=== PATIENT | male | born 1950 | race Caucasian/White ===

== ENCOUNTER 2018-06-26 21:10 | Inpatient (IN) | payer MEDICARE, BC ==
[2018-06-26] MEDS ORDERED: Acetaminophen 500 MG Tab PO ONE (21:57)
--- NOTE | 2018-06-26 22:08 | EDM.PDOC ---
ED HPI GENERAL MEDICAL PROBLEM - General Chief Complaint: Gastrointestinal Problem Stated Complaint: PNEUMONIA Time Seen by Provider: 06/26/18 21:50 Source of Information: Reports: Patient, Old Records, RN History Limitations: Reports: No Limitations - History of Present Illness INITIAL COMMENTS - FREE TEXT/NARRATIVE: 67 yo male here with a dry cough since yesterday and fever and chills this evening. Cough non-productive. Has a pHx of pulmonary fibrosis and COPD. Did have a flu shot this season. No self tx before arrival. Has also a remote hx of pneumonia. Here with his . Onset: Gradual Onset Date: 06/25/18 Duration: Day(s): (1), Getting Worse Location: Reports: Chest Quality: Reports: Other (no pain) Severity: Moderate Improves with: Reports: None Worsens with: Reports: Other (time) Context: Reports: Other (See HPI) Associated Symptoms: Reports: Cough (dry), Fever/Chills. 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 (see below) (none) back pain Pain Score (Numeric/FACES): 6 - Related Data Allergies Allergy/AdvReac Type Severity Reaction Status Date / Time No Known Allergies Allergy Verified 06/26/18 21:48 Home Meds: Home Meds Omeprazole [Prilosec] 40 mg PO DAILY 06/19/15 [History] Simvastatin [Zocor] 20 mg PO BEDTIME 06/19/15 [History] Aspirin [Ecotrin] 81 mg PO DAILY 06/20/15 [History] [place]-3 Fatty Acids [Fish Oil] 1 tab PO DAILY 06/20/15 [History] Sennosides/Docusate Sodium [Stool Softener] 200 mg PO BID 06/20/15 [History] Past Medical History HEENT History: Reports: Impaired Vision, Other (See Below) Other HEENT History: always has a little ringing in ears for past 2 yrs Cardiovascular History: Reports: High Cholesterol Respiratory History: Reports: Pulmonary Fibrosis Gastrointestinal History: Reports: GERD Genitourinary History: Reports: Prostate Disorder Musculoskeletal History: Reports: Arthritis Oncologic (Cancer) History: Reports: Prostate - Infectious Disease History Infectious Disease History: Reports: Chicken Pox, Measles, Mumps - Past Surgical History GI Surgical History: Reports: Colonoscopy Musculoskeletal Surgical History: Reports: Arthroscopic Knee Social & Family History - Caffeine Use Caffeine Use: Reports: Coffee, Soda ED ROS GENERAL - Review of Systems Review Of Systems: See Below Constitutional: Reports: Fever, Chills, Malaise HEENT: Reports: Throat Pain (mild). Denies: Rhinitis Respiratory: Reports: Cough. Denies: Shortness of Breath, Wheezing, Sputum, Hemoptysis Cardiovascular: Reports: No Symptoms GI/Abdominal: Reports: Nausea (very mild). Denies: Abdominal Pain : Reports: No Symptoms Musculoskeletal: Reports: No Symptoms Skin: Reports: No Symptoms Neurological: Reports: No Symptoms ED EXAM, GENERAL - Physical Exam Exam: See Below Exam Limited By: No Limitations General Appearance: Alert, WD/WN, No Apparent Distress Eye Exam: Bilateral Eye: Conjunctival Injection, Normal Inspection, PERRL Ears: Normal External Exam, Normal Canal, Hearing Grossly Normal, Normal TMs Ear Exam: Bilateral Ear: Auricle Normal, Canal Normal Nose: Normal Inspection, Normal Mucosa, No Blood Throat/Mouth: Normal Inspection, Normal Lips, Normal Oropharynx, Normal Voice, No Airway Compromise Head: Atraumatic, Normocephalic Neck: Normal Inspection Respiratory/Chest: No Respiratory Distress, Lungs Clear, Normal Breath Sounds, No Accessory Muscle Use Cardiovascular: Regular Rate, Rhythm, No Edema, Tachycardia GI/Abdominal: Normal Bowel Sounds, Soft, Non-Tender, No Distention Back Exam: Normal Inspection. No: CVA Tenderness (R), CVA Tenderness (L) Extremities: Normal Inspection, Normal Range of Motion, Non-Tender, No Pedal Edema Neurological: Alert, Oriented, CN II-XII Intact, Normal Cognition, No Motor/ Sensory Deficits Psychiatric: Normal Affect, Normal Mood Skin Exam: Warm, Dry, Intact, Normal Color, No Rash, Other (flushed) Course - Vital Signs Last Recorded V/S: Last Vital Signs Temp 39.1 C H 06/26/18 22:54 Pulse 87 06/26/18 22:54 Resp 18 06/26/18 22:54 BP 124/89 06/26/18 22:54 Pulse Ox 100 06/26/18 22:54 - Orders/Labs/Meds Orders: Active Orders 24 hr Category Date Time Status CULTURE BLOOD [BC] Stat Lab 06/26/18 22:10 Received CULTURE BLOOD [BC] Stat Lab 06/26/18 22:15 Received Lactated Ringers [Ringers, Lactated] 1,000 ml Med 06/26/18 23:17 Active IV BOLUS Medication Orders Lactated Ringer's (Ringers, Lactated) 1,000 mls @ 1,000 mls/hr IV BOLUS ONE Stop: 06/27/18 00:16 Labs: Laboratory Tests 06/26/18 06/26/18 06/26/18 Range/Units 22:01 22:30 22:30 WBC 14.4 H (4.5-11.0) K/uL RBC 5.18 (4.30-5.90) M/uL Hgb 14.8 (12.0-15.0) g/dL Hct 43.8 (40.0-54.0) % MCV 85 (80-98) fL MCH 29 (27-31) pg MCHC 34 (32-36) % Plt Count 245 (150-400) K/uL Sodium 137 L (140-148) mmol/L Potassium 3.9 (3.6-5.2) mmol/L Chloride 101 (100-108) mmol/L Carbon Dioxide 23 (21-32) mmol/L Anion Gap 16.9 H (5.0-14.0) mmol/L BUN 21 H (7-18) mg/dL Creatinine 1.2 (0.8-1.3) mg/dL Est Cr Clr Drug Dosing 60.55 mL/min Estimated GFR (MDRD) > 60 (>60) Glucose 155 H (74-106) mg/dL Lactic Acid 2.2 H (0.4-2.0) mmol/L Calcium 8.7 (8.5-10.1) mg/dL Urine Color Urine Appearance Urine pH (4.5-8.0) Ur Specific [place] (1.008-1.030) Urine Protein (NEGATIVE) mg/dL Urine Glucose (UA) (NEGATIVE) mg/dL Urine Ketones (NEGATIVE) mg/dL Urine Occult Blood (NEGATIVE) Urine Nitrite (NEGAITVE) Urine Bilirubin (NEGATIVE) Urine Urobilinogen (NORMAL) mg/dL Ur Leukocyte Esterase (NEGATIVE) Urine RBC (0-5) Urine WBC (0-5) Ur Epithelial Cells Amorphous Sediment Urine Bacteria Urine Mucus 06/26/18 Range/Units 23:01 WBC (4.5-11.0) K/uL RBC (4.30-5.90) M/uL Hgb (12.0-15.0) g/dL Hct (40.0-54.0) % MCV (80-98) fL MCH (27-31) pg MCHC (32-36) % Plt Count (150-400) K/uL Sodium (140-148) mmol/L Potassium (3.6-5.2) mmol/L Chloride (100-108) mmol/L Carbon Dioxide (21-32) mmol/L Anion Gap (5.0-14.0) mmol/L BUN (7-18) mg/dL Creatinine (0.8-1.3) mg/dL Est Cr Clr Drug Dosing mL/min Estimated GFR (MDRD) (>60) Glucose (74-106) mg/dL Lactic Acid (0.4-2.0) mmol/L Calcium (8.5-10.1) mg/dL Urine Color Yellow Urine Appearance Clear Urine pH 5.0 (4.5-8.0) Ur Specific [place] 1.015 (1.008-1.030) Urine Protein Negative (NEGATIVE) mg/dL Urine Glucose (UA) Normal (NEGATIVE) mg/dL Urine Ketones Negative (NEGATIVE) mg/dL Urine Occult Blood Moderate (NEGATIVE) Urine Nitrite Negative (NEGAITVE) Urine Bilirubin Negative (NEGATIVE) Urine Urobilinogen Normal (NORMAL) mg/dL Ur Leukocyte Esterase Negative (NEGATIVE) Urine RBC 0-5 (0-5) Urine WBC 0-5 (0-5) Ur Epithelial Cells Rare Amorphous Sediment Not seen Urine Bacteria Few Urine Mucus Not seen Meds: Medications Generic Name Dose Route Start Last Admin Trade Name Freq PRN Reason Stop Dose Admin Lactated Ringer's 1,000 mls @ 1,000 mls/hr 06/26/18 23:17 Ringers, Lactated IV 06/27/18 00:16 BOLUS ONE Discontinued Medications Generic Name Dose Route Start Last Admin Trade Name Freq PRN Reason Stop Dose Admin Acetaminophen 1,000 mg 06/26/18 21:57 06/26/18 22:05 Tylenol Extra Strength PO 06/26/18 21:58 1,000 mg ONETIME ONE Administration - Radiology Interpretation Free Text/Narrative:: CXR-bilat pneumonia Departure - Departure Time of Disposition: 00:20 Disposition: Admitted As Inpatient 67 Condition: Fair Clinical Impression: Pneumonia Qualifiers: Pneumonia type: due to unspecified organism Laterality: bilateral Lung location : unspecified part of lung Qualified Code(s): J18.9 - Pneumonia, unspecified organism - Discharge Information *PRESCRIPTION DRUG MONITORING PROGRAM REVIEWED*: No *COPY OF PRESCRIPTION DRUG MONITORING REPORT IN PATIENT AMMY: No Referrals: Lina Flood PA-C [Primary Care Provider] - Forms: ED Department Discharge - My Orders Last 24 Hours: My Active Orders 06/26/18 22:10 CULTURE BLOOD [BC] Stat 06/26/18 22:15 CULTURE BLOOD [BC] Stat 06/26/18 23:17 Lactated Ringers [Ringers, Lactated] 1,000 ml IV BOLUS - Assessment/Plan Last 24 Hours: My Active Orders 06/26/18 22:10 CULTURE BLOOD [BC] Stat 06/26/18 22:15 CULTURE BLOOD [BC] Stat 06/26/18 23:17 Lactated Ringers [Ringers, Lactated] 1,000 ml IV BOLUS
[2018-06-26] MEDS ORDERED: Lactated Ringers 1,000 ML IV ONE (23:17)
--- NOTE | 2018-06-26 23:29 | CRLCR ---
Indication: Fever and cough. Technique: Chest 2 views Comparison: None Findings: Cardiovascular and mediastinum: Normal heart size with aortic tortuosity and atherosclerotic calcification. Lungs and pleural spaces: No pleural effusion or pneumothorax. Suture line overlying the left lung. Mild interstitial prominence with some patchy bilateral airspace opacities. Bones and soft tissues: No significant findings. Impression: Bilateral interstitial and alveolar opacities suggestive of pneumonia. Dictated by Beka Bashir MD @ Jun 26 2018 11:26PM Signed by Dr. Beka Bashir @ Jun 26 2018 11:27PM
[2018-06-26] MEDS ORDERED: cefTRIAXone 1 GM in Sodium Chloride 0.9% 50 ML IV ONE (23:53)
[2018-06-26] MEDS ORDERED: Sodium Chloride 0.9% 500 ML IV ONE (23:54)
[2018-06-26] MEDS ORDERED: Azithromycin 250 MG Tab PO ONE (23:54)
[2018-06-27] MEDS ORDERED: Sodium Chloride 0.9% 1,000 ML IV ONE (00:38)
[2018-06-27] MEDS ORDERED: Ondansetron 4 MG/2 ML SDV IV PRN (01:00)
[2018-06-27] MEDS ORDERED: Ondansetron 4 MG Tab.DIS PO PRN (01:00)
[2018-06-27] MEDS ORDERED: oxyCODONE 5 MG Tab PO PRN (01:00)
[2018-06-27] MEDS ORDERED: Morphine 2 MG/ML Syringe IVPUSH PRN (01:00)
[2018-06-27] MEDS ORDERED: Albuterol 0.083% 2.5 MG/3 ML Neb Soln NEB PRN (01:00)
[2018-06-27] MEDS ORDERED: methylPREDNISolone Sodium Succinate 125 MG/2 ML SDV IVPUSH ONE (01:07)
--- NOTE | 2018-06-27 01:16 | PCM.HP ---
H&P History of Present Illness - General Date of Service: 06/26/18 Admit Problem/Dx: Admission Diagnosis/Problem Admission Diagnosis/Problem Pneumonia Source of Information: Patient, Provider, RN History Limitations: Reports: No Limitations - History of Present Illness Initial Comments - Free Text/Narative: 67 yo male here with a dry cough since yesterday and fever and chills this evening. Cough non-productive. Has a pHx of pulmonary fibrosis and COPD. Did have a flu shot this season. No self tx before arrival. Has also a remote hx of pneumonia. Here with his . l Onset of Symptoms: Reports: Sudden (this evening had sudden of fever 103+, shaking chills.) Duration of Symptoms: Reports: Day(s): (not feeling well, sick for the past two days) Location: Reports: Generalized Quality: Reports: Same as Previous Episode (felt like when he had his last pneumonia. ) Severity: Severe Improves with: Reports: Medication, Rest Worsens with: Reports: Breathing, Movement Context: Reports: Other (pneumonia with history of pulmonary fibrosis and COPD) Associated Symptoms: Reports: Chest Pain, Cough, Fever/Chills, Loss of Appetite , Nausea/Vomiting, Shortness of Breath, Weakness back pain Pain Score (Numeric/FACES): 6 - Related Data Allergies/Adverse Reactions: Allergies Allergy/AdvReac Type Severity Reaction Status Date / Time No Known Allergies Allergy Verified 06/26/18 21:48 Home Medications: Home Meds Omeprazole [Prilosec] 40 mg PO DAILY 06/19/15 [History] Simvastatin [Zocor] 20 mg PO BEDTIME 06/19/15 [History] Aspirin [Ecotrin] 81 mg PO DAILY 06/20/15 [History] [place]-3 Fatty Acids [Fish Oil] 1 tab PO DAILY 06/20/15 [History] Sennosides/Docusate Sodium [Stool Softener] 200 mg PO BID 06/20/15 [History] Past Medical History HEENT History: Reports: Impaired Vision, Other (See Below) Other HEENT History: always has a little ringing in ears for past 2 yrs Cardiovascular History: Reports: High Cholesterol Respiratory History: Reports: Pulmonary Fibrosis Gastrointestinal History: Reports: GERD Genitourinary History: Reports: Prostate Disorder Other Genitourinary History: Prostate CA Musculoskeletal History: Reports: Arthritis Oncologic (Cancer) History: Reports: Prostate - Infectious Disease History Infectious Disease History: Reports: Chicken Pox, Measles, Mumps - Past Surgical History GI Surgical History: Reports: Colonoscopy Musculoskeletal Surgical History: Reports: Arthroscopic Knee Social & Family History - Tobacco Use Smoking Status *Q: Never Smoker Tobacco Use Within Last Twelve Months: No Used Tobacco, but Quit: Yes Month/Year Tobacco Last Used: quit smoking 30 years ago. - Caffeine Use Caffeine Use: Reports: Coffee, Soda - Recreational Drug Use Recreational Drug Use: No - Living Situation & Occupation Living situation: Reports: (lives with Yana samson [place], [place] at [facility]. One son,only child lives nearby. 3 grand children.) H&P Review of Systems - Review of Systems: Review Of Systems: See Below General: Reports: Fever, Chills, Malaise, Weakness, Decreased Appetite HEENT: Reports: Sore Throat Pulmonary: Reports: Shortness of Breath, Wheezing, Pleuritic Chest Pain, Cough Cardiovascular: Reports: No Symptoms, Blood Pressure Problem Genitourinary: Reports: No Symptoms Musculoskeletal: Reports: No Symptoms Skin: Reports: No Symptoms Psychiatric: Reports: No Symptoms Neurological: Reports: No Symptoms Hematologic/Lymphatic: Reports: No Symptoms Immunologic: Reports: No Symptoms Exam - Exam Exam: See Below - Vital Signs Vital Signs: Last Vital Signs Temp 39.1 C H 06/26/18 22:54 Pulse 87 06/26/18 22:54 Resp 18 06/26/18 22:54 BP 124/89 06/26/18 22:54 Pulse Ox 100 06/26/18 22:54 Weight: 96.162 kg - Exam Quality Assessment: Supplemental Oxygen, DVT Prophylaxis General: Alert, Oriented, Cooperative, Mild Distress HEENT: PERRLA, Hearing Intact, Mucosa Moist & [place], Nares Patent, Normal Nasal Septum, Posterior Pharynx Clear, Conjunctiva Clear, EOMI, EACs Clear, TMs Clear Neck: Supple Lungs: Decreased Breath Sounds, Crackles, Rales, Wheezing Cardiovascular: Regular Rate, Regular Rhythm, Normal S1, Normal S2 GI/Abdominal Exam: Normal Bowel Sounds, Soft, Non-Tender, No Organomegaly, No Distention (Male) Exam: Deferred Rectal (Males) Exam: Deferred Back Exam: Normal Inspection, Full Range of Motion Extremities: Normal Inspection, Normal Range of Motion, Non-Tender, No Pedal Edema, Normal Capillary Refill Skin: Warm, Dry, Intact Neurological: Cranial Nerves Intact, Reflexes Equal Bilateral Neuro Extensive - Mental Status: Alert, Oriented x3, Normal Mood/Affect, Normal Cognition Psychiatric: Alert, Normal Affect, Normal Mood - Patient Data Lab Results Last 24 hrs: Laboratory Results - last 24 hr 06/26/18 06/26/18 06/26/18 Range/Units 22:01 22:30 22:30 WBC 14.4 H (4.5-11.0) K/uL RBC 5.18 (4.30-5.90) M/uL Hgb 14.8 (12.0-15.0) g/dL Hct 43.8 (40.0-54.0) % MCV 85 (80-98) fL MCH 29 (27-31) pg MCHC 34 (32-36) % Plt Count 245 (150-400) K/uL Sodium 137 L (140-148) mmol/L Potassium 3.9 (3.6-5.2) mmol/L Chloride 101 (100-108) mmol/L Carbon Dioxide 23 (21-32) mmol/L Anion Gap 16.9 H (5.0-14.0) mmol/L BUN 21 H (7-18) mg/dL Creatinine 1.2 (0.8-1.3) mg/dL Est Cr Clr Drug Dosing 60.55 mL/min Estimated GFR (MDRD) > 60 (>60) Glucose 155 H (74-106) mg/dL Lactic Acid 2.2 H (0.4-2.0) mmol/L Calcium 8.7 (8.5-10.1) mg/dL Urine Color Urine Appearance Urine pH (4.5-8.0) Ur Specific [place] (1.008-1.030) Urine Protein (NEGATIVE) mg/dL Urine Glucose (UA) (NEGATIVE) mg/dL Urine Ketones (NEGATIVE) mg/dL Urine Occult Blood (NEGATIVE) Urine Nitrite (NEGAITVE) Urine Bilirubin (NEGATIVE) Urine Urobilinogen (NORMAL) mg/dL Ur Leukocyte Esterase (NEGATIVE) Urine RBC (0-5) Urine WBC (0-5) Ur Epithelial Cells Amorphous Sediment Urine Bacteria Urine Mucus 06/26/18 Range/Units 23:01 WBC (4.5-11.0) K/uL RBC (4.30-5.90) M/uL Hgb (12.0-15.0) g/dL Hct (40.0-54.0) % MCV (80-98) fL MCH (27-31) pg MCHC (32-36) % Plt Count (150-400) K/uL Sodium (140-148) mmol/L Potassium (3.6-5.2) mmol/L Chloride (100-108) mmol/L Carbon Dioxide (21-32) mmol/L Anion Gap (5.0-14.0) mmol/L BUN (7-18) mg/dL Creatinine (0.8-1.3) mg/dL Est Cr Clr Drug Dosing mL/min Estimated GFR (MDRD) (>60) Glucose (74-106) mg/dL Lactic Acid (0.4-2.0) mmol/L Calcium (8.5-10.1) mg/dL Urine Color Yellow Urine Appearance Clear Urine pH 5.0 (4.5-8.0) Ur Specific [place] 1.015 (1.008-1.030) Urine Protein Negative (NEGATIVE) mg/dL Urine Glucose (UA) Normal (NEGATIVE) mg/dL Urine Ketones Negative (NEGATIVE) mg/dL Urine Occult Blood Moderate (NEGATIVE) Urine Nitrite Negative (NEGAITVE) Urine Bilirubin Negative (NEGATIVE) Urine Urobilinogen Normal (NORMAL) mg/dL Ur Leukocyte Esterase Negative (NEGATIVE) Urine RBC 0-5 (0-5) Urine WBC 0-5 (0-5) Ur Epithelial Cells Rare Amorphous Sediment Not seen Urine Bacteria Few Urine Mucus Not seen Result Diagrams: 06/26/18 22:01 06/26/18 22:30 Marck Results Last 24 hrs: Microbiology 06/26/18 22:07 Influenza Type A Antigen Screen - Final Nasal, Unspecified NEGATIVE INFLUENZA A VIRUS AG Influenza Type B Antigen Screen - Final NEGATIVE INFLUENZA B VIRUS AG - Problem List (1) Pneumonia SNOMED Code(s): 759528500 ICD Code: J18.9 - PNEUMONIA, UNSPECIFIED ORGANISM Status: Acute Priority : High Current Visit: Yes Qualifiers: Pneumonia type: due to unspecified organism Laterality: bilateral Lung location: unspecified part of lung Qualified Code(s): J18.9 - Pneumonia, unspecified organism (2) Pulmonary fibrosis, unspecified SNOMED Code(s): 42883122 ICD Code: J84.10 - PULMONARY FIBROSIS, UNSPECIFIED Status: Acute Current Visit: Yes Problem List Initiated/Reviewed/Updated: Yes Orders Last 24hrs: Active Orders 24 hr Category Date Time Status Patient Status Manage Transfer [TRANSFER] Routine ADT 06/27/18 00:58 Active Intake and Output [RC] QSHIFT Care 06/27/18 01:02 Active Notify Provider Vital Signs [RC] ASDIRECTED Care 06/27/18 01:03 Active Oxygen Therapy [RC] PRN Care 06/27/18 01:01 Active Pulse Oximetry [RC] PRN Care 06/27/18 01:02 Active RT Aerosol Therapy [RC] ASDIRECTED Care 06/27/18 01:06 Active Up With Assistance [RC] ASDIRECTED Care 06/27/18 01:00 Active VTE/DVT Education [RC] Per Unit Routine Care 06/27/18 01:01 Active Vital Signs [RC] Q4H Care 06/27/18 01:01 Active Regular Diet [DIET] Diet 06/27/18 Breakfast Active CBC WITH AUTO DIFF [HEME] AM Lab 06/27/18 05:11 Ordered COMPREHENSIVE METABOLIC PN,CMP [CHEM] AM Lab 06/27/18 05:11 Ordered CULTURE BLOOD [BC] Stat Lab 06/26/18 22:10 Received CULTURE BLOOD [BC] Stat Lab 06/26/18 22:15 Received TROPONIN I [CHEM] AM Lab 06/27/18 05:11 Ordered Acetaminophen [Tylenol] Med 06/27/18 01:00 Ordered 650 mg PO Q4H PRN Albuterol [Proventil Neb Soln] Med 06/27/18 01:00 Ordered 2.5 mg NEB Q4H PRN Albuterol/Ipratropium [DuoNeb 3.0-0.5 MG/3 ML] Med 06/27/18 06:00 Ordered 3 ml NEB QID Azithromycin [Zithromax] 500 mg Med 06/27/18 21:00 Ordered Sodium Chloride 0.9% [Normal Saline] 250 ml IV Q24H Codeine/guaiFENesin [Robitussin AC] Med 06/27/18 01:07 Ordered 10 ml PO Q4H PRN Docusate Sodium [Colace] Med 06/27/18 01:00 Ordered 100 mg PO BID PRN Enoxaparin [Lovenox] Med 06/27/18 09:00 Ordered 40 mg SUBCUT DAILY Melatonin Med 06/27/18 21:00 Ordered 6 mg PO BEDTIME Morphine Med 06/27/18 01:00 Ordered 2 mg IVPUSH Q2H PRN Ondansetron [Zofran ODT] Med 06/27/18 01:00 Ordered 4 mg PO Q6H PRN Ondansetron [Zofran] Med 06/27/18 01:00 Ordered 4 mg IV Q4H PRN Pantoprazole [ProTONIX IV] Med 06/27/18 09:00 Ordered 40 mg IVPUSH DAILY Sodium Chloride 0.9% [Normal Saline] 1,000 ml Med 06/27/18 00:38 Active IV .BOLUS Sodium Chloride 0.9% [Normal Saline] 1,000 ml Med 06/27/18 01:00 Ordered IV ASDIRECTED cefTRIAXone [Rocephin] Med 06/27/18 23:00 Ordered 1 gm IM Q24H methylPREDNISolone Sod Succ [Solu-MEDROL] Med 06/27/18 01:07 Once 125 mg IVPUSH ONETIME ONE methylPREDNISolone Sod Succ [Solu-MEDROL] Med 06/27/18 08:10 Ordered 40 mg IVPUSH Q6H oxyCODONE Med 06/27/18 01:00 Ordered 5 mg PO Q4H PRN Resuscitation Status Routine Resus Stat 06/27/18 01:00 Ordered Medication Orders Acetaminophen (Tylenol) 650 mg PO Q4H PRN PRN Reason: Pain (Mild 1-3)/fever Albuterol (Proventil Neb Soln) 2.5 mg NEB Q4H PRN PRN Reason: Shortness Of Breath/wheezing Albuterol/Ipratropium (Duoneb 3.0-0.5 Mg/3 Ml) 3 ml NEB QID [facility]ER[place] Ceftriaxone Sodium (Rocephin) 1 gm IM Q24H [facility] Docusate Sodium (Colace) 100 mg PO BID PRN PRN Reason: Constipation Enoxaparin Sodium (Lovenox) 40 mg SUBCUT DAILY BERNA[place] Guaifenesin/Codeine Phosphate (Robitussin Ac) 10 ml PO Q4H PRN PRN Reason: Cough Sodium Chloride (Normal Saline) 1,000 mls @ 1,000 mls/hr IV .BOLUS ONE Stop: 06/27/18 01:37 Last Admin: 06/27/18 00:43 Dose: 1,000 mls/hr Azithromycin 500 mg/ Sodium (Chloride) 250 mls @ 250 mls/hr IV Q24H BERNA[place] Stop: 06/30/18 21:59 Sodium Chloride (Normal Saline) 1,000 mls @ 125 mls/hr IV ASDIRECTED [facility] Melatonin (Melatonin) 6 mg PO BEDTIME [facility] Methylprednisolone Sodium Succinate (Solu-Medrol) 125 mg IVPUSH ONETIME ONE Stop: 06/27/18 01:08 Methylprednisolone Sodium Succinate (Solu-Medrol) 40 mg IVPUSH Q6H [facility] Morphine Sulfate (Morphine) 2 mg IVPUSH Q2H PRN PRN Reason: Pain (severe 7-10) Ondansetron HCl (Zofran Odt) 4 mg PO Q6H PRN PRN Reason: Nausea able to take PO Ondansetron HCl (Zofran) 4 mg IV Q4H PRN PRN Reason: Nausea/Vomiting Oxycodone HCl (Oxycodone) 5 mg PO Q4H PRN PRN Reason: Pain (moderate 4-6) Pantoprazole Sodium (Protonix Iv) 40 mg IVPUSH DAILY [facility] Assessment/Plan Comment:: ASSESSMENT AND PLAN: This is a 67 year old male present to ER with sudden onset this evening of fever 103, chills and shortness of breath, but has been sick for past two days. Has pulmonary fibrosis. In emergency room he was noted to be short of breath, vital signs 39.6-103-28B/ P 182/76, oxygen saturation at 90% on room air, he was started on oxygen and given nebulizer, oxygen saturations improved to 100%. Labs: CBC WBC 14.4, hgb 14.8, hct 43.8, plt 245, chemistries Na+137, K+ 3.9, cl 101, anion gap 16.9, bun 21, cr 1.2, gfr>60, , ua with micro negative , lactic acid 2.2, ca++ 8.7, influenza A&B negative, blood cultures x2 pending. chest x-ray radiology report bilateral infiltrates consistent with pneumonia. Medications : duo neb, IV fluids normal saline at 1000ML's per hour x 1 bag then at 125ml/hr. PNEUMONIA, bilateral -Admit to [address] [place] [address] for further monitoring -IV Fluids for rehydration NS at 125 mL per hour -IV Antibiotic: Rocephin 1 g IV every 24 hours -IV antibiotic: Zithromax 500 mg IV every 24 hours -IV Solu-Medrol 125 mg given in ER, order 40 mg IV every 6 hrs -albuterol nebulizer every 4 hours as needed for wheezing and cough -Duo nebu ; schedule nebulize every 6 hours -oxygen per nasal cannula to keep oxygen sats greater than 92% -Advise to notify nurses of any chest pain or other symptoms -blood cultures x2 pending Hx of FIBROSIS -monitor Maintenance issues -Orders home meds: hold -Nutrition: regular diet -Ledezma catheter not indicated at this time -DVT: Lovenox 40 mg subcut -PPI: IV Protonix 40mg daily -consult to Spiritual CODE STATUS: FULL CODE Admission status: Admit to [address] [place] [address] Admission justification. This patient will be admitted for inpatient services and is medically appropriate meeting medical necessity for inpatient admission as outlined in my documentation. I reasonably expect the patient will require inpatient services that span. Time over 2 midnights. I reasonably expect this patient to be discharged or transferred within 96 hours after admission to the [facility]. Disposition: home Primary care provider: Dr. Lina Flood Hospitalist: Dr. Overton
[2018-06-27] MEDS: Sodium Chloride 0.9% 1,000 ML IV SCH ×2 (02:25→10:02)
[2018-06-27] MEDS: Albuterol/Ipratropium 3.0-0.5 MG/3 ML Neb Soln NEB SCH ×4 (07:33→21:00)
[2018-06-27] MEDS: Enoxaparin 40 MG/0.4 ML Syringe SUBCUT SCH (08:59)
[2018-06-27] MEDS: methylPREDNISolone Sodium Succinate 40 MG/1 ML SDV IVPUSH SCH ×3 (08:59→20:54)
[2018-06-27] MEDS: Pantoprazole 40 MG Tab.CR PO SCH (08:59)
[2018-06-27] MEDS ORDERED: Pantoprazole 40 MG Vial IVPUSH SCH (09:00)
[2018-06-27] MEDS: Losartan 50 MG Tab PO SCH (11:06)
[2018-06-27] MEDS: Aspirin 81 MG Tab.EC PO SCH (11:06)
--- NOTE | 2018-06-27 14:08 | PCM.PN ---
- General Info Date of Service: 06/27/18 Subjective Update: Mr. Erickson is a 67-year-old gentleman who is admitted through the emergency department last night with fever, cough, shortness of breath and weakness. On evaluation he was found in and and elevated white blood cell count and bilateral pulmonary infiltrates consistent with pneumonia. Blood cultures have been obtained and he was started on IV antibiotic therapy for community- acquired pneumonia with Rocephin and azithromycin. There was no evidence of sepsis on admission or significant hypoxia. - Review of Systems General: Reports: Fever, Weakness, Chills Pulmonary: Reports: Shortness of Breath, Cough. Denies: Pleuritic Chest Pain, Sputum, Hemoptysis, Wheezing Cardiovascular: Reports: Dyspnea on Exertion. Denies: Chest Pain, Palpitations , Orthopnea, PND, Edema, Lightheadedness Gastrointestinal: Reports: No Symptoms - Patient Data Vitals - Most Recent: Last Vital Signs Temp 98.8 F 06/27/18 10:58 Pulse 67 06/27/18 10:58 Resp 18 06/27/18 10:58 BP 127/63 06/27/18 11:06 Pulse Ox 98 06/27/18 10:58 Weight - Most Recent: 212 lb 0.015 oz I&O - Last 24 Hours: Intake & Output 06/26/18 06/27/18 06/27/18 22:59 06:59 14:59 Intake Total 347 480 Output Total 450 800 Balance -103 -320 Lab Results Last 24 Hours: Laboratory Results - last 24 hr 06/26/18 06/26/18 06/26/18 Range/Units 22:01 22:30 22:30 WBC 14.4 H (4.5-11.0) K/uL RBC 5.18 (4.30-5.90) M/uL Hgb 14.8 (12.0-15.0) g/dL Hct 43.8 (40.0-54.0) % MCV 85 (80-98) fL MCH 29 (27-31) pg MCHC 34 (32-36) % Plt Count 245 (150-400) K/uL Neut % (Auto) (36-66) % Lymph % (Auto) (24-44) % [place] % (Auto) (2-6) % Eos % (Auto) (2-4) % Baso % (Auto) (0-1) % Sodium 137 L (140-148) mmol/L Potassium 3.9 (3.6-5.2) mmol/L Chloride 101 (100-108) mmol/L Carbon Dioxide 23 (21-32) mmol/L Anion Gap 16.9 H (5.0-14.0) mmol/L BUN 21 H (7-18) mg/dL Creatinine 1.2 (0.8-1.3) mg/dL Est Cr Clr Drug Dosing 60.55 mL/min Estimated GFR (MDRD) > 60 (>60) Glucose 155 H (74-106) mg/dL Lactic Acid 2.2 H (0.4-2.0) mmol/L Calcium 8.7 (8.5-10.1) mg/dL Total Bilirubin (0.2-1.0) mg/dL AST (15-37) U/L ALT (12-78) U/L Alkaline Phosphatase (46-116) U/L Troponin I (0.000-0.056) ng/mL Total Protein (6.4-8.2) g/dL Albumin (3.4-5.0) g/dL Globulin (2.3-3.5) g/dL Albumin/Globulin Ratio (1.2-2.2) Urine Color Urine Appearance Urine pH (4.5-8.0) Ur Specific [place] (1.008-1.030) Urine Protein (NEGATIVE) mg/dL Urine Glucose (UA) (NEGATIVE) mg/dL Urine Ketones (NEGATIVE) mg/dL Urine Occult Blood (NEGATIVE) Urine Nitrite (NEGAITVE) Urine Bilirubin (NEGATIVE) Urine Urobilinogen (NORMAL) mg/dL Ur Leukocyte Esterase (NEGATIVE) Urine RBC (0-5) Urine WBC (0-5) Ur Epithelial Cells Amorphous Sediment Urine Bacteria Urine Mucus 06/26/18 06/27/18 06/27/18 Range/Units 23:01 05:00 05:00 WBC 20.0 H (4.5-11.0) K/uL RBC 4.63 (4.30-5.90) M/uL Hgb 13.2 (12.0-15.0) g/dL Hct 39.2 L (40.0-54.0) % MCV 85 (80-98) fL MCH 29 (27-31) pg MCHC 34 (32-36) % Plt Count 224 (150-400) K/uL Neut % (Auto) 90 H (36-66) % Lymph % (Auto) 4 L (24-44) % [place] % (Auto) 6 (2-6) % Eos % (Auto) 0 L (2-4) % Baso % (Auto) 0 (0-1) % Sodium 138 L (140-148) mmol/L Potassium 4.2 (3.6-5.2) mmol/L Chloride 104 (100-108) mmol/L Carbon Dioxide 23 (21-32) mmol/L Anion Gap 15.2 H (5.0-14.0) mmol/L BUN 19 H (7-18) mg/dL Creatinine 1.2 (0.8-1.3) mg/dL Est Cr Clr Drug Dosing 60.35 mL/min Estimated GFR (MDRD) > 60 (>60) Glucose 148 H (74-106) mg/dL Lactic Acid (0.4-2.0) mmol/L Calcium 8.4 L (8.5-10.1) mg/dL Total Bilirubin 0.4 (0.2-1.0) mg/dL AST 31 (15-37) U/L ALT 37 (12-78) U/L Alkaline Phosphatase 59 (46-116) U/L Troponin I 0.068 H* (0.000-0.056) ng/mL Total Protein 6.8 (6.4-8.2) g/dL Albumin 3.2 L (3.4-5.0) g/dL Globulin 3.6 H (2.3-3.5) g/dL Albumin/Globulin Ratio 0.9 L (1.2-2.2) Urine Color Yellow Urine Appearance Clear Urine pH 5.0 (4.5-8.0) Ur Specific [place] 1.015 (1.008-1.030) Urine Protein Negative (NEGATIVE) mg/dL Urine Glucose (UA) Normal (NEGATIVE) mg/dL Urine Ketones Negative (NEGATIVE) mg/dL Urine Occult Blood Moderate (NEGATIVE) Urine Nitrite Negative (NEGAITVE) Urine Bilirubin Negative (NEGATIVE) Urine Urobilinogen Normal (NORMAL) mg/dL Ur Leukocyte Esterase Negative (NEGATIVE) Urine RBC 0-5 (0-5) Urine WBC 0-5 (0-5) Ur Epithelial Cells Rare Amorphous Sediment Not seen Urine Bacteria Few Urine Mucus Not seen 06/27/18 Range/Units 10:51 WBC (4.5-11.0) K/uL RBC (4.30-5.90) M/uL Hgb (12.0-15.0) g/dL Hct (40.0-54.0) % MCV (80-98) fL MCH (27-31) pg MCHC (32-36) % Plt Count (150-400) K/uL Neut % (Auto) (36-66) % Lymph % (Auto) (24-44) % [place] % (Auto) (2-6) % Eos % (Auto) (2-4) % Baso % (Auto) (0-1) % Sodium (140-148) mmol/L Potassium (3.6-5.2) mmol/L Chloride (100-108) mmol/L Carbon Dioxide (21-32) mmol/L Anion Gap (5.0-14.0) mmol/L BUN (7-18) mg/dL Creatinine (0.8-1.3) mg/dL Est Cr Clr Drug Dosing mL/min Estimated GFR (MDRD) (>60) Glucose (74-106) mg/dL Lactic Acid (0.4-2.0) mmol/L Calcium (8.5-10.1) mg/dL Total Bilirubin (0.2-1.0) mg/dL AST (15-37) U/L ALT (12-78) U/L Alkaline Phosphatase (46-116) U/L Troponin I 0.028 (0.000-0.056) ng/mL Total Protein (6.4-8.2) g/dL Albumin (3.4-5.0) g/dL Globulin (2.3-3.5) g/dL Albumin/Globulin Ratio (1.2-2.2) Urine Color Urine Appearance Urine pH (4.5-8.0) Ur Specific [place] (1.008-1.030) Urine Protein (NEGATIVE) mg/dL Urine Glucose (UA) (NEGATIVE) mg/dL Urine Ketones (NEGATIVE) mg/dL Urine Occult Blood (NEGATIVE) Urine Nitrite (NEGAITVE) Urine Bilirubin (NEGATIVE) Urine Urobilinogen (NORMAL) mg/dL Ur Leukocyte Esterase (NEGATIVE) Urine RBC (0-5) Urine WBC (0-5) Ur Epithelial Cells Amorphous Sediment Urine Bacteria Urine Mucus Marck Results Last 24 Hours: Microbiology 06/26/18 22:07 Influenza Type A Antigen Screen - Final Nasal, Unspecified NEGATIVE INFLUENZA A VIRUS AG Influenza Type B Antigen Screen - Final NEGATIVE INFLUENZA B VIRUS AG Med Orders - Current: Current Medications Acetaminophen (Tylenol) 650 mg PO Q4H PRN PRN Reason: Pain (Mild 1-3)/fever Albuterol (Proventil Neb Soln) 2.5 mg NEB Q4H PRN PRN Reason: Shortness Of Breath/wheezing Albuterol/Ipratropium (Duoneb 3.0-0.5 Mg/3 Ml) 3 ml NEB QIDRT [facility] Last Admin: 06/27/18 10:45 Dose: 3 ml Aspirin (Halfprin) 81 mg PO DAILY [facility] Last Admin: 06/27/18 11:06 Dose: 81 mg Docusate Sodium (Colace) 100 mg PO BID PRN PRN Reason: Constipation Enoxaparin Sodium (Lovenox) 40 mg SUBCUT DAILY [facility] Last Admin: 06/27/18 08:59 Dose: 40 mg Guaifenesin/Codeine Phosphate (Robitussin Ac) 10 ml PO Q4H PRN PRN Reason: Cough Azithromycin 500 mg/ Sodium (Chloride) 250 mls @ 250 mls/hr IV Q24H [facility] Stop: 06/30/18 21:59 Ceftriaxone Sodium 1 gm/ (Sodium Chloride) 50 mls @ 100 mls/hr IV Q24H [facility] Lactobacillus Rhamnosus (Culturelle) 1 cap PO BID [facility] Losartan Potassium (Cozaar) 50 mg PO DAILY [facility] Last Admin: 06/27/18 11:06 Dose: 50 mg Melatonin (Melatonin) 6 mg PO BEDTIME [facility] Methylprednisolone Sodium Succinate (Solu-Medrol) 40 mg IVPUSH Q6H [facility] Last Admin: 06/27/18 08:59 Dose: 40 mg Morphine Sulfate (Morphine) 2 mg IVPUSH Q2H PRN PRN Reason: Pain (severe 7-10) Ondansetron HCl (Zofran Odt) 4 mg PO Q6H PRN PRN Reason: Nausea able to take PO Ondansetron HCl (Zofran) 4 mg IV Q4H PRN PRN Reason: Nausea/Vomiting Oxycodone HCl (Oxycodone) 5 mg PO Q4H PRN PRN Reason: Pain (moderate 4-6) Pantoprazole Sodium (Protonix) 40 mg PO ACBREAKFAST [facility] Last Admin: 06/27/18 08:59 Dose: 40 mg Simvastatin (Zocor) 20 mg PO BEDTIME [facility] Discontinued Medications Acetaminophen (Tylenol Extra Strength) 1,000 mg PO ONETIME ONE Stop: 06/26/18 21:58 Last Admin: 06/26/18 22:05 Dose: 1,000 mg Azithromycin (Zithromax) 500 mg PO ONETIME ONE Stop: 06/26/18 23:55 Last Admin: 06/27/18 00:29 Dose: 500 mg Ceftriaxone Sodium (Rocephin) 1 gm IM Q24H [facility] Lactated Ringer's (Ringers, Lactated) 1,000 mls @ 1,000 mls/hr IV BOLUS ONE Stop: 06/27/18 00:16 Last Admin: 06/27/18 00:44 Dose: Not Given Ceftriaxone Sodium 1 gm/ (Sodium Chloride) 50 mls @ 100 mls/hr IV ONETIME ONE Stop: 06/27/18 00:22 Last Admin: 06/27/18 00:29 Dose: 100 mls/hr Sodium Chloride (Normal Saline) 500 mls @ 1,000 mls/hr IV .BOLUS ONE Stop: 06/27/18 00:23 Last Admin: 06/27/18 00:43 Dose: Not Given Sodium Chloride (Normal Saline) 1,000 mls @ 1,000 mls/hr IV .BOLUS ONE Stop: 06/27/18 01:37 Last Admin: 06/27/18 00:43 Dose: 1,000 mls/hr Sodium Chloride (Normal Saline) 1,000 mls @ 125 mls/hr IV ASDIRECTED [facility] Last Admin: 06/27/18 10:02 Dose: 125 mls/hr Methylprednisolone Sodium Succinate (Solu-Medrol) 125 mg IVPUSH ONETIME ONE Stop: 06/27/18 01:08 Last Admin: 06/27/18 02:23 Dose: 125 mg Pantoprazole Sodium (Protonix Iv) 40 mg IVPUSH DAILY [facility] - Exam Quality Assessment: DVT Prophylaxis General: Alert, Oriented, Cooperative, Mild Distress Lungs: Normal Respiratory Effort, Rhonchi. No: Crackles, Rales, Wheezing Cardiovascular: Regular Rate, Regular Rhythm, No Murmurs GI/Abdominal Exam: Soft, Non-Tender, No Organomegaly, No Distention Extremities: Non-Tender, No Pedal Edema - Problem List Review Problem List Initiated/Reviewed/Updated: Yes - My Orders Last 24 Hours: My Active Orders 06/27/18 10:30 Aspirin [Halfprin] 81 mg PO DAILY Losartan [Cozaar] 50 mg PO DAILY 06/27/18 13:30 Lactobacillus Rhamnosus GG [Culturelle] 1 cap PO BID Convert IV to Saline Lock [OM.PC] Routine 06/27/18 21:00 Simvastatin [Zocor] 20 mg PO BEDTIME 06/27/18 23:00 cefTRIAXone [Rocephin] 1 gm Sodium Chloride 0.9% [Normal Saline] 50 ml IV Q24H 06/28/18 05:00 BASIC METABOLIC PANEL,BMP [CHEM] Timed CBC WITH AUTO DIFF [HEME] Timed MAGNESIUM [CHEM] Timed - Plan Plan:: ASSESSMENT AND PLAN PNEUMONIA, bilateral -Saline lock IV -IV Antibiotic: Rocephin 1 g IV every 24 hours -IV antibiotic: Zithromax 500 mg IV every 24 hours -IV Solu-Medrol 40 mg IV every 6 hrs -albuterol nebulizer every 4 hours as needed for wheezing and cough -Duo nebu ; schedule nebulize every 6 hours -oxygen as needed -blood cultures x2 pending HISTORY OF PULMONARY FIBROSIS -monitor Maintenance issues -Nutrition: regular diet -Ledezma catheter not indicated at this time -DVT: Lovenox 40 mg subcut -PPI: IV Protonix 40mg daily CODE STATUS: FULL CODE Admission status: Admit to [address] [place] [address]. This patient will be admitted for inpatient services and is medically appropriate meeting medical necessity for inpatient admission as outlined in my documentation. I reasonably expect the patient will require inpatient services that span. Time over 2 midnights. I reasonably expect this patient to be discharged or transferred within 96 hours after admission to the critical access hospital. Disposition: home Primary care provider: Dr. Lina Flood Hospitalist: Dr. Overton
[2018-06-27] MEDS: Acetaminophen 325 MG Tab PO PRN (14:13)
[2018-06-27] MEDS: Lactobacillus Rhamnosus GG (Probiotic) Cap PO SCH ×2 (14:13→20:54)
[2018-06-27] MEDS: Azithromycin 500 MG in Sodium Chloride 0.9% 250 ML IV SCH (20:54)
[2018-06-27] MEDS: Simvastatin 20 MG Tab PO SCH (20:55)
[2018-06-27] MEDS: Codeine/guaiFENesin 100mg-10 MG/5 ML Syrup 10 ML Cup PO PRN (21:00)
[2018-06-27] MEDS ORDERED: Melatonin 3 MG Tab PO SCH (21:00)
[2018-06-27] MEDS: cefTRIAXone 1 GM in Sodium Chloride 0.9% 50 ML IV SCH (22:13)
[2018-06-27] MEDS ORDERED: cefTRIAXone 1 GM Vial IM SCH (23:00)
[2018-06-28] MEDS: methylPREDNISolone Sodium Succinate 40 MG/1 ML SDV IVPUSH SCH ×3 (02:15→13:39)
[2018-06-28] MEDS: Albuterol/Ipratropium 3.0-0.5 MG/3 ML Neb Soln NEB SCH ×4 (07:26→20:18)
[2018-06-28] MEDS: Pantoprazole 40 MG Tab.CR PO SCH (07:57)
[2018-06-28] MEDS: Enoxaparin 40 MG/0.4 ML Syringe SUBCUT SCH (07:59)
[2018-06-28] MEDS: Lactobacillus Rhamnosus GG (Probiotic) Cap PO SCH ×2 (08:00→20:18)
[2018-06-28] MEDS: Aspirin 81 MG Tab.EC PO SCH (08:00)
[2018-06-28] MEDS: Losartan 50 MG Tab PO SCH (08:00)
--- NOTE | 2018-06-28 14:01 | PCM.PN ---
- General Info Date of Service: 06/28/18 Subjective Update: Mr. Erickson has been stable since yesterday, shortness of breath improved and he is been able to be out and walking in the hallways. Cough seems to be better as well, he has remained afebrile and hemodynamically stable. Functional Status: Reports: Tolerating Diet, Ambulating, Urinating - Review of Systems Pulmonary: Reports: Shortness of Breath, Cough, Sputum. Denies: Hemoptysis, Wheezing Cardiovascular: Reports: Dyspnea on Exertion. Denies: Chest Pain, Palpitations , Orthopnea, PND, Edema, Lightheadedness Gastrointestinal: Reports: No Symptoms - Patient Data Vitals - Most Recent: Last Vital Signs Temp 98.2 F 06/28/18 11:00 Pulse 80 06/28/18 11:00 Resp 16 06/28/18 11:00 BP 147/70 H 06/28/18 11:00 Pulse Ox 96 06/28/18 11:00 Weight - Most Recent: 212 lb 0.015 oz I&O - Last 24 Hours: Intake & Output 06/27/18 06/28/18 06/28/18 22:59 06:59 14:59 Intake Total 2019 300 680 Balance 2019 300 680 Lab Results Last 24 Hours: Laboratory Results - last 24 hr 06/28/18 06/28/18 Range/Units 05:17 05:17 WBC 19.7 H (4.5-11.0) K/uL RBC 4.08 L (4.30-5.90) M/uL Hgb 11.8 L (12.0-15.0) g/dL Hct 34.8 L (40.0-54.0) % MCV 85 (80-98) fL MCH 29 (27-31) pg MCHC 34 (32-36) % Plt Count 165 (150-400) K/uL Neut % (Auto) 90 H (36-66) % Lymph % (Auto) 5 L (24-44) % [place] % (Auto) 4 (2-6) % Eos % (Auto) 1 L (2-4) % Baso % (Auto) 0 (0-1) % Sodium 138 L (140-148) mmol/L Potassium 4.6 (3.6-5.2) mmol/L Chloride 106 (100-108) mmol/L Carbon Dioxide 21 (21-32) mmol/L Anion Gap 15.6 H (5.0-14.0) mmol/L BUN 22 H (7-18) mg/dL Creatinine 1.0 (0.8-1.3) mg/dL Est Cr Clr Drug Dosing 72.42 mL/min Estimated GFR (MDRD) > 60 (>60) Glucose 155 H (74-106) mg/dL Calcium 8.0 L (8.5-10.1) mg/dL Magnesium 1.9 (1.8-2.4) mg/dL Marck Results Last 24 Hours: Microbiology 06/26/18 22:10 Aerobic Blood Culture - Preliminary Blood - Arm, Left NO GROWTH AFTER 1 DAY Anaerobic Blood Culture - Preliminary NO GROWTH AFTER 1 DAY 06/26/18 22:15 Aerobic Blood Culture - Preliminary Blood - Arm, Left NO GROWTH AFTER 1 DAY Anaerobic Blood Culture - Preliminary NO GROWTH AFTER 1 DAY Med Orders - Current: Current Medications Acetaminophen (Tylenol) 650 mg PO Q4H PRN PRN Reason: Pain (Mild 1-3)/fever Last Admin: 06/27/18 14:13 Dose: 650 mg Albuterol (Proventil Neb Soln) 2.5 mg NEB Q4H PRN PRN Reason: Shortness Of Breath/wheezing Albuterol/Ipratropium (Duoneb 3.0-0.5 Mg/3 Ml) 3 ml NEB QIDRT [facility] Last Admin: 06/28/18 10:49 Dose: 3 ml Aspirin (Halfprin) 81 mg PO DAILY [facility] Last Admin: 06/28/18 08:00 Dose: 81 mg Docusate Sodium (Colace) 100 mg PO BID PRN PRN Reason: Constipation Enoxaparin Sodium (Lovenox) 40 mg SUBCUT DAILY [facility] Last Admin: 06/28/18 07:59 Dose: 40 mg Guaifenesin/Codeine Phosphate (Robitussin Ac) 10 ml PO Q4H PRN PRN Reason: Cough Last Admin: 06/27/18 21:00 Dose: 10 ml Azithromycin 500 mg/ Sodium (Chloride) 250 mls @ 250 mls/hr IV Q24H [facility] Stop: 06/30/18 21:59 Last Admin: 06/27/18 20:54 Dose: 250 mls/hr Ceftriaxone Sodium 1 gm/ (Sodium Chloride) 50 mls @ 100 mls/hr IV Q24H [facility] Last Admin: 06/27/18 22:13 Dose: 100 mls/hr Lactobacillus Rhamnosus (Culturelle) 1 cap PO BID [facility] Last Admin: 06/28/18 08:00 Dose: 1 cap Losartan Potassium (Cozaar) 50 mg PO DAILY [facility] Last Admin: 06/28/18 08:00 Dose: 50 mg Melatonin (Melatonin) 6 mg PO BEDTIME [facility] Last Admin: 06/27/18 20:54 Dose: 6 mg Morphine Sulfate (Morphine) 2 mg IVPUSH Q2H PRN PRN Reason: Pain (severe 7-10) Ondansetron HCl (Zofran Odt) 4 mg PO Q6H PRN PRN Reason: Nausea able to take PO Ondansetron HCl (Zofran) 4 mg IV Q4H PRN PRN Reason: Nausea/Vomiting Oxycodone HCl (Oxycodone) 5 mg PO Q4H PRN PRN Reason: Pain (moderate 4-6) Pantoprazole Sodium (Protonix) 40 mg PO ACBREAKFAST [facility] Last Admin: 06/28/18 07:57 Dose: 40 mg Simvastatin (Zocor) 20 mg PO BEDTIME [facility] Last Admin: 06/27/18 20:55 Dose: 20 mg Discontinued Medications Acetaminophen (Tylenol Extra Strength) 1,000 mg PO ONETIME ONE Stop: 06/26/18 21:58 Last Admin: 06/26/18 22:05 Dose: 1,000 mg Azithromycin (Zithromax) 500 mg PO ONETIME ONE Stop: 06/26/18 23:55 Last Admin: 06/27/18 00:29 Dose: 500 mg Ceftriaxone Sodium (Rocephin) 1 gm IM Q24H [facility] Lactated Ringer's (Ringers, Lactated) 1,000 mls @ 1,000 mls/hr IV BOLUS ONE Stop: 06/27/18 00:16 Last Admin: 06/27/18 00:44 Dose: Not Given Ceftriaxone Sodium 1 gm/ (Sodium Chloride) 50 mls @ 100 mls/hr IV ONETIME ONE Stop: 06/27/18 00:22 Last Admin: 06/27/18 00:29 Dose: 100 mls/hr Sodium Chloride (Normal Saline) 500 mls @ 1,000 mls/hr IV .BOLUS ONE Stop: 06/27/18 00:23 Last Admin: 06/27/18 00:43 Dose: Not Given Sodium Chloride (Normal Saline) 1,000 mls @ 1,000 mls/hr IV .BOLUS ONE Stop: 06/27/18 01:37 Last Admin: 06/27/18 00:43 Dose: 1,000 mls/hr Sodium Chloride (Normal Saline) 1,000 mls @ 125 mls/hr IV ASDIRECTED [facility] Last Admin: 06/27/18 10:02 Dose: 125 mls/hr Methylprednisolone Sodium Succinate (Solu-Medrol) 125 mg IVPUSH ONETIME ONE Stop: 06/27/18 01:08 Last Admin: 06/27/18 02:23 Dose: 125 mg Methylprednisolone Sodium Succinate (Solu-Medrol) 40 mg IVPUSH Q6H [facility] Last Admin: 06/28/18 13:39 Dose: 40 mg Pantoprazole Sodium (Protonix Iv) 40 mg IVPUSH DAILY [facility] - Exam General: Alert, Oriented, Cooperative, No Acute Distress Lungs: Clear to Auscultation, Normal Respiratory Effort Cardiovascular: Regular Rate, Regular Rhythm, No Murmurs GI/Abdominal Exam: Soft, Non-Tender, No Organomegaly, No Distention Extremities: Non-Tender, No Pedal Edema - Problem List Review Problem List Initiated/Reviewed/Updated: Yes - My Orders Last 24 Hours: My Active Orders 06/27/18 13:30 Lactobacillus Rhamnosus GG [Culturelle] 1 cap PO BID Convert IV to Saline Lock [OM.PC] Routine 06/27/18 21:00 Simvastatin [Zocor] 20 mg PO BEDTIME 06/27/18 23:00 cefTRIAXone [Rocephin] 1 gm Sodium Chloride 0.9% [Normal Saline] 50 ml IV Q24H 06/29/18 05:00 CBC WITH AUTO DIFF [HEME] Timed - Plan Plan:: ASSESSMENT AND PLAN PNEUMONIA, bilateral-further improvement since yesterday with flush shortness of breath and increased energy. Afebrile, white blood subcut remains elevated but at least part of this is likely secondary to Solu-Medrol -Discontinue IV Solu-Medrol -Saline lock IV -IV Antibiotic: Rocephin 1 g IV every 24 hours -IV antibiotic: Zithromax 500 mg IV every 24 hours -albuterol nebulizer every 4 hours as needed for wheezing and cough -Duo nebu ; schedule nebulize every 6 hours -oxygen as needed -blood cultures x2 pending HISTORY OF PULMONARY FIBROSIS -monitor Maintenance issues -Nutrition: regular diet -Ledezma catheter not indicated at this time -DVT: Lovenox 40 mg subcut -PPI: IV Protonix 40mg daily CODE STATUS: FULL CODE Admission status: Admit to [address] [place] [address] Admission justification. This patient will be admitted for inpatient services and is medically appropriate meeting medical necessity for inpatient admission as outlined in my documentation. I reasonably expect the patient will require inpatient services that span. Time over 2 midnights. I reasonably expect this patient to be discharged or transferred within 96 hours after admission to the critical [facility]. Disposition: home Primary care provider: Dr. Lina Flood Hospitalist: Dr. Overton
[2018-06-28] MEDS ORDERED: Zolpidem 5 MG Tab PO PRN (19:39)
[2018-06-28] MEDS: Azithromycin 500 MG in Sodium Chloride 0.9% 250 ML IV SCH (20:18)
[2018-06-28] MEDS: Simvastatin 20 MG Tab PO SCH (20:18)
[2018-06-28] MEDS: cefTRIAXone 1 GM in Sodium Chloride 0.9% 50 ML IV SCH (22:30)
[2018-06-29] MEDS: Albuterol/Ipratropium 3.0-0.5 MG/3 ML Neb Soln NEB SCH ×4 (07:20→21:15)
[2018-06-29] MEDS: Aspirin 81 MG Tab.EC PO SCH (08:20)
[2018-06-29] MEDS: Docusate Sodium 100 MG Cap PO PRN (08:20)
[2018-06-29] MEDS: Pantoprazole 40 MG Tab.CR PO SCH (08:20)
[2018-06-29] MEDS: Losartan 50 MG Tab PO SCH (08:21)
[2018-06-29] MEDS: Lactobacillus Rhamnosus GG (Probiotic) Cap PO SCH ×2 (08:21→21:23)
[2018-06-29] MEDS: Enoxaparin 40 MG/0.4 ML Syringe SUBCUT SCH (08:21)
[2018-06-29] MEDS: Codeine/guaiFENesin 100mg-10 MG/5 ML Syrup 10 ML Cup PO PRN (08:22)
[2018-06-29] MEDS ORDERED: Benzocaine/Cetylpyridinium/Menthol Lozenge MUCMEM PRN (10:12)
--- NOTE | 2018-06-29 13:52 | PCM.PN ---
- General Info Date of Service: 06/29/18 Subjective Update: Mr. Erickson does not feel as well today, more shortness of breath and cough. He has been walking in the hallways but not as far as he was able to yesterday. Vital signs have remained stable and he has been afebrile. White blood cell count remains significantly elevated but some of this is likely residual effect from glucocorticoid therapy. - Review of Systems General: Reports: Weakness. Denies: Fever, Chills Pulmonary: Reports: Shortness of Breath, Cough, Sputum. Denies: Pleuritic Chest Pain, Hemoptysis, Wheezing Cardiovascular: Reports: Dyspnea on Exertion. Denies: Chest Pain, Palpitations , Orthopnea, PND, Edema, Lightheadedness Gastrointestinal: Reports: No Symptoms - Patient Data Vitals - Most Recent: Last Vital Signs Temp 98.4 F 06/29/18 10:25 Pulse 66 06/29/18 10:35 Resp 18 06/29/18 10:25 BP 127/73 06/29/18 10:25 Pulse Ox 96 06/29/18 10:35 Weight - Most Recent: 212 lb 0.015 oz I&O - Last 24 Hours: Intake & Output 06/28/18 06/29/18 06/29/18 22:59 06:59 14:59 Intake Total 2200 960 Balance 2200 960 Lab Results Last 24 Hours: Laboratory Results - last 24 hr 06/29/18 Range/Units 05:30 WBC 19.0 H (4.5-11.0) K/uL RBC 3.94 L (4.30-5.90) M/uL Hgb 11.4 L (12.0-15.0) g/dL Hct 33.4 L (40.0-54.0) % MCV 85 (80-98) fL MCH 29 (27-31) pg MCHC 34 (32-36) % Plt Count 109 L (150-400) K/uL Neut % (Auto) 82 H (36-66) % Lymph % (Auto) 11 L (24-44) % [place] % (Auto) 7 H (2-6) % Eos % (Auto) 0 L (2-4) % Baso % (Auto) 0 (0-1) % [place] Results Last 24 Hours: Microbiology 06/26/18 22:10 Aerobic Blood Culture - Preliminary Blood - Arm, Left NO GROWTH AFTER 2 DAYS Anaerobic Blood Culture - Preliminary NO GROWTH AFTER 2 DAYS 06/26/18 22:15 Aerobic Blood Culture - Preliminary Blood - Arm, Left NO GROWTH AFTER 2 DAYS Anaerobic Blood Culture - Preliminary NO GROWTH AFTER 2 DAYS Med Orders - Current: Current Medications Acetaminophen (Tylenol) 650 mg PO Q4H PRN PRN Reason: Pain (Mild 1-3)/fever Last Admin: 06/27/18 14:13 Dose: 650 mg Albuterol (Proventil Neb Soln) 2.5 mg NEB Q4H PRN PRN Reason: Shortness Of Breath/wheezing Albuterol/Ipratropium (Duoneb 3.0-0.5 Mg/3 Ml) 3 ml NEB QIDRT [facility] Last Admin: 06/29/18 10:34 Dose: 3 ml Aspirin (Halfprin) 81 mg PO DAILY [facility] Last Admin: 06/29/18 08:20 Dose: 81 mg Benzocaine/Menthol (Cepacol Sore Throat) 1 lozenge MUCMEM Q2H PRN PRN Reason: Sore Throat Last Admin: 06/29/18 11:21 Dose: 1 kesha Docusate Sodium (Colace) 100 mg PO BID PRN PRN Reason: Constipation Last Admin: 06/29/18 08:20 Dose: 100 mg Enoxaparin Sodium (Lovenox) 40 mg SUBCUT DAILY [facility] Last Admin: 06/29/18 08:21 Dose: 40 mg Guaifenesin/Codeine Phosphate (Robitussin Ac) 10 ml PO Q4H PRN PRN Reason: Cough Last Admin: 06/29/18 08:22 Dose: 10 ml Azithromycin 500 mg/ Sodium (Chloride) 250 mls @ 250 mls/hr IV Q24H [facility] Stop: 06/30/18 21:59 Last Admin: 06/28/18 20:18 Dose: 250 mls/hr Ceftriaxone Sodium 1 gm/ (Sodium Chloride) 50 mls @ 100 mls/hr IV Q24H [facility] Last Admin: 06/28/18 22:30 Dose: 100 mls/hr Lactobacillus Rhamnosus (Culturelle) 1 cap PO BID [facility] Last Admin: 06/29/18 08:21 Dose: 1 cap Losartan Potassium (Cozaar) 50 mg PO DAILY [facility] Last Admin: 06/29/18 08:21 Dose: 50 mg Morphine Sulfate (Morphine) 2 mg IVPUSH Q2H PRN PRN Reason: Pain (severe 7-10) Ondansetron HCl (Zofran Odt) 4 mg PO Q6H PRN PRN Reason: Nausea able to take PO Ondansetron HCl (Zofran) 4 mg IV Q4H PRN PRN Reason: Nausea/Vomiting Oxycodone HCl (Oxycodone) 5 mg PO Q4H PRN PRN Reason: Pain (moderate 4-6) Pantoprazole Sodium (Protonix) 40 mg PO ACBREAKFAST [facility] Last Admin: 06/29/18 08:20 Dose: 40 mg Simvastatin (Zocor) 20 mg PO BEDTIME [facility] Last Admin: 06/28/18 20:18 Dose: 20 mg Zolpidem Tartrate (Ambien) 5 mg PO BEDTIME PRN PRN Reason: Insomnia Last Admin: 06/28/18 20:18 Dose: 5 mg Discontinued Medications Acetaminophen (Tylenol Extra Strength) 1,000 mg PO ONETIME ONE Stop: 06/26/18 21:58 Last Admin: 06/26/18 22:05 Dose: 1,000 mg Azithromycin (Zithromax) 500 mg PO ONETIME ONE Stop: 06/26/18 23:55 Last Admin: 06/27/18 00:29 Dose: 500 mg Ceftriaxone Sodium (Rocephin) 1 gm IM Q24H [facility] Lactated Ringer's (Ringers, Lactated) 1,000 mls @ 1,000 mls/hr IV BOLUS ONE Stop: 06/27/18 00:16 Last Admin: 06/27/18 00:44 Dose: Not Given Ceftriaxone Sodium 1 gm/ (Sodium Chloride) 50 mls @ 100 mls/hr IV ONETIME ONE Stop: 06/27/18 00:22 Last Admin: 06/27/18 00:29 Dose: 100 mls/hr Sodium Chloride (Normal Saline) 500 mls @ 1,000 mls/hr IV .BOLUS ONE Stop: 06/27/18 00:23 Last Admin: 06/27/18 00:43 Dose: Not Given Sodium Chloride (Normal Saline) 1,000 mls @ 1,000 mls/hr IV .BOLUS ONE Stop: 06/27/18 01:37 Last Admin: 06/27/18 00:43 Dose: 1,000 mls/hr Sodium Chloride (Normal Saline) 1,000 mls @ 125 mls/hr IV ASDIRECTED [facility] Last Admin: 06/27/18 10:02 Dose: 125 mls/hr Melatonin (Melatonin) 6 mg PO BEDTIME [facility] Last Admin: 06/27/18 20:54 Dose: 6 mg Methylprednisolone Sodium Succinate (Solu-Medrol) 125 mg IVPUSH ONETIME ONE Stop: 06/27/18 01:08 Last Admin: 06/27/18 02:23 Dose: 125 mg Methylprednisolone Sodium Succinate (Solu-Medrol) 40 mg IVPUSH Q6H [facility] Last Admin: 06/28/18 13:39 Dose: 40 mg Pantoprazole Sodium (Protonix Iv) 40 mg IVPUSH DAILY [facility] - Exam Quality Assessment: DVT Prophylaxis General: Alert, Oriented, Cooperative, Mild Distress Lungs: Normal Respiratory Effort, Decreased Breath Sounds. No: Rales, Rhonchi, Rub, Stridor Cardiovascular: Regular Rate, Regular Rhythm, No Murmurs GI/Abdominal Exam: Soft, Non-Tender, No Organomegaly, No Distention Extremities: Non-Tender, No Pedal Edema - Problem List Review Problem List Initiated/Reviewed/Updated: Yes - My Orders Last 24 Hours: My Active Orders 06/28/18 19:39 Zolpidem [Ambien] 5 mg PO BEDTIME PRN 06/29/18 10:12 Benzocaine/Cetylpyrd/Menthol [Cepacol Sore Throat] 1 lozenge MUCMEM Q2H PRN 06/30/18 05:00 CBC WITH AUTO DIFF [HEME] Timed - Plan Plan:: ASSESSMENT AND PLAN PNEUMONIA, bilateral-no improvement since yesterday, somewhat more short of breath with increased cough. No fever, white count remains elevated but likely secondary to recent glucocorticoid therapy -Saline lock IV -IV Antibiotic: Rocephin 1 g IV every 24 hours -IV antibiotic: Zithromax 500 mg IV every 24 hours -albuterol nebulizer every 4 hours as needed for wheezing and cough -Duo nebu ; schedule nebulize every 6 hours -oxygen as needed -blood cultures x2 pending HISTORY OF PULMONARY FIBROSIS -monitor Maintenance issues -Nutrition: regular diet -Ledezma catheter not indicated at this time -DVT: Lovenox 40 mg subcut -PPI: IV Protonix 40mg daily CODE STATUS: FULL CODE Admission status: Admit to [address] [place] [address] Admission justification. This patient will be admitted for inpatient services and is medically appropriate meeting medical necessity for inpatient admission as outlined in my documentation. I reasonably expect the patient will require inpatient services that span. Time over 2 midnights. I reasonably expect this patient to be discharged or transferred within 96 hours after admission to the [facility]. Disposition: home Primary care provider: Dr. Lina Flood Hospitalist: Dr. Overton
[2018-06-29] MEDS ORDERED: diphenhydrAMINE 25 MG Cap PO PRN (13:53)
[2018-06-29] MEDS: Acetaminophen 325 MG Tab PO PRN (19:36)
[2018-06-29] MEDS: Azithromycin 500 MG in Sodium Chloride 0.9% 250 ML IV SCH (21:15)
[2018-06-29] MEDS: Simvastatin 20 MG Tab PO SCH (21:23)
[2018-06-29] MEDS: cefTRIAXone 1 GM in Sodium Chloride 0.9% 50 ML IV SCH (22:32)
[2018-06-30] MEDS: Docusate Sodium 100 MG Cap PO PRN (07:17)
[2018-06-30] MEDS: Albuterol/Ipratropium 3.0-0.5 MG/3 ML Neb Soln NEB SCH (07:27)
[2018-06-30] MEDS: Losartan 50 MG Tab PO SCH (08:37)
[2018-06-30] MEDS: Pantoprazole 40 MG Tab.CR PO SCH (08:37)
[2018-06-30] MEDS: Aspirin 81 MG Tab.EC PO SCH (08:37)
[2018-06-30] MEDS: Lactobacillus Rhamnosus GG (Probiotic) Cap PO SCH (08:38)
[2018-06-30] MEDS: Enoxaparin 40 MG/0.4 ML Syringe SUBCUT SCH (08:38)
[2018-06-30 10:32] VITALS: BP 128/93
--- NOTE | 2018-06-30 11:55 | PCM.DCSUM1 ---
Discharge Summary - Hospital Course Brief History: Mr. Erickson is a 67-year-old gentleman who was admitted through the emergency department with increased shortness of breath cough and fever secondary to bilateral pneumonia. - Discharge Data Discharge Date: 06/30/18 Discharge Disposition: Home, Self-Care 01 Condition: Fair - Patient Summary/Data Hospital Course: Mr. Erickson is a 67 yo male here with a dry cough since yesterday and fever and chills this evening. Cough non-productive. Has a pHx of pulmonary fibrosis and COPD. Did have a flu shot this season. No self tx before arrival. Has also a remote hx of pneumonia. On evaluation in the emergency department he was found to have an elevated white blood cell count and bilateral infiltrates identified on chest x-ray. He was felt to have probable community-acquired pneumonia, no evidence of sepsis at the time of admission. Blood cultures were obtained in the emergency department and he was started on IV antibiotic therapy with Rocephin and azithromycin. He was given IV fluids for hydration and initially also started on IV Solu-Medrol. White blood cell count remained elevated for the first few days of hospitalization but after the Solu-Medrol was discontinued did normalize prior to discharge. He had no significant temperature elevation for 2 days prior to discharge. He was tapered off of supplemental oxygen and by the time of discharge was walking the hallways without supplemental oxygen. He does have known underlying pulmonary fibrosis as well as COPD. On discharge he will be prescribed nebulizer therapy with DuoNeb nebs every 4 hours as needed. Activity will be as tolerated and he will resume his usual diet. Follow-up appointment will be scheduled with his primary care provider within one week. - Patient Instructions Diet: Usual Diet as Tolerated Activity: As Tolerated Other/Special Instructions: Please schedule follow-up appointment with primary care provider within one week. - Discharge Plan *PRESCRIPTION DRUG MONITORING PROGRAM REVIEWED*: Not Applicable *COPY OF PRESCRIPTION DRUG MONITORING REPORT IN PATIENT AMMY: Not Applicable Prescriptions/Med Rec: Albuterol/Ipratropium [DuoNeb 3.0-0.5 MG/3 ML] 3 ml NEB Q4H PRN #100 neb PRN Reason: Dyspnea Cefdinir [Omnicef] 300 mg PO BID #6 cap Home Medications: Home Meds Omeprazole [Prilosec] 40 mg PO DAILY 06/19/15 [History] Simvastatin [Zocor] 20 mg PO BEDTIME 06/19/15 [History] Aspirin [Ecotrin] 81 mg PO DAILY 06/20/15 [History] [place]-3 Fatty Acids [Fish Oil] 1 tab PO DAILY 06/20/15 [History] Sennosides/Docusate Sodium [Stool Softener] 200 mg PO BID 06/20/15 [History] Losartan Potassium 50 mg PO DAILY 06/27/18 [History] Albuterol/Ipratropium [DuoNeb 3.0-0.5 MG/3 ML] 3 ml NEB Q4H PRN #100 neb [Rx] Cefdinir [Omnicef] 300 mg PO BID #6 cap 06/30/18 [Rx] Patient Handouts: Chronic Obstructive Pulmonary Disease Exacerbation, Easy-to- Read, Pulmonary Fibrosis, Community-Acquired Pneumonia, Adult, [id number] Referrals: Lina Flood PA-C [Primary Care Provider] - - Discharge Summary/Plan Comment DC Time >30 min.: No - Patient Data Vitals - Most Recent: Last Vital Signs Temp 98.1 F 06/30/18 10:31 Pulse 85 06/30/18 10:58 Resp 16 06/30/18 10:31 BP 128/93 H 06/30/18 10:31 Pulse Ox 96 06/30/18 10:58 Weight - Most Recent: 212 lb 0.015 oz I&O - Last 24 hours: Intake & Output 06/29/18 06/30/18 06/30/18 22:59 06:59 14:59 Intake Total 300 700 Balance 300 700 Lab Results - Last 24 hrs: Laboratory Results - last 24 hr 06/30/18 Range/Units 05:00 WBC 9.5 (4.5-11.0) K/uL RBC 4.16 L (4.30-5.90) M/uL Hgb 11.7 L (12.0-15.0) g/dL Hct 35.9 L (40.0-54.0) % MCV 86 (80-98) fL MCH 28 (27-31) pg MCHC 33 (32-36) % Plt Count 229 (150-400) K/uL Neut % (Auto) 67 H (36-66) % Lymph % (Auto) 21 L (24-44) % [place] % (Auto) 10 H (2-6) % Eos % (Auto) 2 (2-4) % Baso % (Auto) 0 (0-1) % KAREEN Results - Last 24 hrs: Microbiology 06/26/18 22:15 Aerobic Blood Culture - Preliminary Blood - Arm, Left NO GROWTH AFTER 3 DAYS Anaerobic Blood Culture - Preliminary NO GROWTH AFTER 3 DAYS 06/26/18 22:10 Aerobic Blood Culture - Preliminary Blood - Arm, Left NO GROWTH AFTER 3 DAYS Anaerobic Blood Culture - Preliminary NO GROWTH AFTER 3 DAYS Med Orders - Current: Current Medications Acetaminophen (Tylenol) 650 mg PO Q4H PRN PRN Reason: Pain (Mild 1-3)/fever Last Admin: 06/29/18 19:36 Dose: 650 mg Albuterol (Proventil Neb Soln) 2.5 mg NEB Q4H PRN PRN Reason: Shortness Of Breath/wheezing Albuterol/Ipratropium (Duoneb 3.0-0.5 Mg/3 Ml) 3 ml NEB QIDRT [facility] Last Admin: 06/30/18 07:27 Dose: 3 ml Aspirin (Halfprin) 81 mg PO DAILY [facility] Last Admin: 06/30/18 08:37 Dose: 81 mg Benzocaine/Menthol (Cepacol Sore Throat) 1 lozenge MUCMEM Q2H PRN PRN Reason: Sore Throat Last Admin: 06/29/18 11:21 Dose: 1 kesha Diphenhydramine HCl (Benadryl) 25 mg PO BEDTIME PRN PRN Reason: Insomnia Last Admin: 06/29/18 23:15 Dose: 25 mg Docusate Sodium (Colace) 100 mg PO BID PRN PRN Reason: Constipation Last Admin: 06/30/18 07:17 Dose: 100 mg Enoxaparin Sodium (Lovenox) 40 mg SUBCUT DAILY [facility] Last Admin: 06/30/18 08:38 Dose: 40 mg Guaifenesin/Codeine Phosphate (Robitussin Ac) 10 ml PO Q4H PRN PRN Reason: Cough Last Admin: 06/29/18 08:22 Dose: 10 ml Azithromycin 500 mg/ Sodium (Chloride) 250 mls @ 250 mls/hr IV Q24H [facility] Stop: 06/30/18 21:59 Last Admin: 06/29/18 21:15 Dose: 250 mls/hr Ceftriaxone Sodium 1 gm/ (Sodium Chloride) 50 mls @ 100 mls/hr IV Q24H [facility] Last Admin: 06/29/18 22:32 Dose: 100 mls/hr Lactobacillus Rhamnosus (Culturelle) 1 cap PO BID [facility] Last Admin: 06/30/18 08:38 Dose: 1 cap Losartan Potassium (Cozaar) 50 mg PO DAILY [facility] Last Admin: 06/30/18 08:37 Dose: 50 mg Morphine Sulfate (Morphine) 2 mg IVPUSH Q2H PRN PRN Reason: Pain (severe 7-10) Ondansetron HCl (Zofran Odt) 4 mg PO Q6H PRN PRN Reason: Nausea able to take PO Ondansetron HCl (Zofran) 4 mg IV Q4H PRN PRN Reason: Nausea/Vomiting Oxycodone HCl (Oxycodone) 5 mg PO Q4H PRN PRN Reason: Pain (moderate 4-6) Pantoprazole Sodium (Protonix) 40 mg PO ACBREAKFAST [facility] Last Admin: 06/30/18 08:37 Dose: 40 mg Simvastatin (Zocor) 20 mg PO BEDTIME [facility] Last Admin: 06/29/18 21:23 Dose: 20 mg Discontinued Medications Acetaminophen (Tylenol Extra Strength) 1,000 mg PO ONETIME ONE Stop: 06/26/18 21:58 Last Admin: 06/26/18 22:05 Dose: 1,000 mg Azithromycin (Zithromax) 500 mg PO ONETIME ONE Stop: 06/26/18 23:55 Last Admin: 06/27/18 00:29 Dose: 500 mg Ceftriaxone Sodium (Rocephin) 1 gm IM Q24H [facility] Lactated Ringer's (Ringers, Lactated) 1,000 mls @ 1,000 mls/hr IV BOLUS ONE Stop: 06/27/18 00:16 Last Admin: 06/27/18 00:44 Dose: Not Given Ceftriaxone Sodium 1 gm/ (Sodium Chloride) 50 mls @ 100 mls/hr IV ONETIME ONE Stop: 06/27/18 00:22 Last Admin: 06/27/18 00:29 Dose: 100 mls/hr Sodium Chloride (Normal Saline) 500 mls @ 1,000 mls/hr IV .BOLUS ONE Stop: 06/27/18 00:23 Last Admin: 06/27/18 00:43 Dose: Not Given Sodium Chloride (Normal Saline) 1,000 mls @ 1,000 mls/hr IV .BOLUS ONE Stop: 06/27/18 01:37 Last Admin: 06/27/18 00:43 Dose: 1,000 mls/hr Sodium Chloride (Normal Saline) 1,000 mls @ 125 mls/hr IV ASDIRECTED [facility] Last Admin: 06/27/18 10:02 Dose: 125 mls/hr Melatonin (Melatonin) 6 mg PO BEDTIME [facility] Last Admin: 06/27/18 20:54 Dose: 6 mg Methylprednisolone Sodium Succinate (Solu-Medrol) 125 mg IVPUSH ONETIME ONE Stop: 06/27/18 01:08 Last Admin: 06/27/18 02:23 Dose: 125 mg Methylprednisolone Sodium Succinate (Solu-Medrol) 40 mg IVPUSH Q6H [facility] Last Admin: 06/28/18 13:39 Dose: 40 mg Pantoprazole Sodium (Protonix Iv) 40 mg IVPUSH DAILY [facility] Zolpidem Tartrate (Ambien) 5 mg PO BEDTIME PRN PRN Reason: Insomnia Last Admin: 06/28/18 20:18 Dose: 5 mg - Exam General: Reports: Alert, Oriented, Cooperative, No Acute Distress Lungs: Reports: Decreased Breath Sounds, Rales. Denies: Rhonchi, Rub, Wheezing Cardiovascular: Reports: Regular Rate, Regular Rhythm, No Murmurs GI/Abdominal Exam: Soft, Non-Tender, No Organomegaly, No Distention Extremities: Non-Tender, No Pedal Edema
== END 2018-06-30 12:33 | disposition home or self-care (01) | DRG 194 ==
LOC: JP.ED 21:10 → JP.MS 06-27 00:58
PROVIDERS: ADMIT Hospitalist; ATTEND Hospitalist
DX: J18.9 Pneumonia, unspecified organism (principal); J44.0 Chronic obstructive pulmonary disease with (acute) lower respiratory infection; J44.9 Chronic obstructive pulmonary disease, unspecified; J84.10 Pulmonary fibrosis, unspecified; Z87.891 Personal history of nicotine dependence; R05 Cough; R50.9 Fever, unspecified; R06.02 Shortness of breath; E78.00 Pure hypercholesterolemia, unspecified; K21.9 Gastro-esophageal reflux disease without esophagitis; M19.90 Unspecified osteoarthritis, unspecified site; Z85.46 Personal history of malignant neoplasm of prostate; H54.7 Unspecified visual loss; Z79.82 Long term (current) use of aspirin
CPT/HCPCS: 36415; 71046; 80048; 81001; 83605; 85027; 87040 ×2; 87804 ×2; 96365; 99285; A9270 ×2; J0696; J7030; J7050; 80053; 83735; 84484; 85025; 94640; 96361; J0456; J1650; J2920; J2930; J7620-GY

== ENCOUNTER 2019-06-08 07:23 | Day surgery (SDC) | payer MEDICARE, BC ==
[~2019-06-08 07:23] MED LIST: Dextrose 5%-Lactated Ringers 1,000 ML IV SCH; Glycopyrrolate 0.2 MG/ML 2 ML SDV IVPUSH ONE
[2019-06-08] MEDS ORDERED: fentaNYL 100 MCG/2 ML SDV ONE (07:39)
[2019-06-08] MEDS ORDERED: Midazolam 1 MG/ML 2 ML SDV ONE (07:39)
[2019-06-08] MEDS ORDERED: Propofol 200 MG/20 ML SDV ONE (07:40)
[2019-06-08 10:36] VITALS: BP 131/81; PULSE 63
--- NOTE | 2019-06-17 11:19 | OR ---
DATE OF PROCEDURE: 06/08/2019 SURGEON: Cirilo Horowitz MD PREOPERATIVE DIAGNOSIS: Longstanding gastroesophageal reflux disease. POSTOPERATIVE DIAGNOSES: 1. Longstanding gastroesophageal reflux disease. 2. Large hiatal hernia (8 cm) with minimal gross inflammation at esophagogastric junction. 3. Erosive antral gastritis. OPERATIVE PROCEDURE: Esophagogastroduodenoscopy with: 1. Biopsy of esophagogastric junction for histologic evaluation. 2. Biopsies of antrum for CLOtest. ANESTHESIA: IV sedation. INDICATIONS FOR PROCEDURE: This is a 68-year-old male presenting with longstanding gastroesophageal reflux disease, presently he is on omeprazole 40 mg a day and with this has fairly good symptom control. The plan is to proceed with upper GI endoscopy with biopsy as indicated. Potential risks including bleeding and perforation were discussed, and the patient wishes to proceed. DETAILS OF PROCEDURE: The patient was taken to the operating room and placed in a left lateral decubitus position. IV sedation was administered after which the upper GI endoscope was passed orally through the length of the esophagus and the stomach with retroflexion view of the fundus, thereafter through the pyloric channel and into the junction of the third and fourth portions of the duodenum. Findings included normal hypopharynx, larynx, upper esophageal sphincter, and esophageal body. At the EG junction, there was a quite large hiatal hernia measuring around 8 cm. With this, there was however minimal gross inflammation of the esophagogastric junction. There was no obvious upward extension of the gastroesophageal junction mucosal line above the upper gastric folds. Within the stomach, there were some streaks of erosive gastritis within the antrum. Otherwise, the remainder of the stomach and the visualized portions of the duodenum were unremarkable. At this point, biopsies were obtained from the antrum and sent for CLOtest for H. pylori. Multiple biopsies were then obtained from the esophagogastric junction and minimal bleeding from the biopsy sites was seen, the procedure then concluded, and the patient taken to the recovery room in satisfactory condition. There were no evident complications. At this point, the patient's medical management appeared to be satisfactory and we continued the omeprazole 40 mg a day and the patient will be instructed to maintain routine medical followup. Cirilo Horowitz MD /[id number]
== END 2019-06-08 10:50 | disposition home or self-care (01) ==
LOC: JP.SDS 07:23
PROVIDERS: ATTEND Surgery
DX: K21.0 Gastro-esophageal reflux disease with esophagitis (principal); K29.70 Gastritis, unspecified, without bleeding; K44.9 Diaphragmatic hernia without obstruction or gangrene; E78.5 Hyperlipidemia, unspecified; I10 Essential (primary) hypertension; E66.9 Obesity, unspecified; Z68.30 Body mass index [BMI] 30.0-30.9, adult
CPT/HCPCS: 43239; 87081; 88305; J2250; J2704; J3010; J3490; J7121

== ENCOUNTER 2021-03-30 13:15 | Emergency (ER) | payer MEDICARE, BC ==
[2021-03-30 13:21] VITALS: BP 175/73; PULSE 60
[2021-03-30] MEDS ORDERED: HYDROmorphone 1 MG/ML Syringe IVPUSH ONE ×2 (13:40→14:29)
[2021-03-30] MEDS ORDERED: Prochlorperazine 10 MG/2 ML SDV IVPUSH ONE (13:42)
--- NOTE | 2021-03-30 13:45 | EDM.PDOC ---
ED HPI GENERAL MEDICAL PROBLEM - General Chief Complaint: Upper Extremity Injury/Pain Stated Complaint: MEDICAL VIA [facility] Time Seen by Provider: 03/30/21 13:39 Source of Information: Reports: Patient, Family, RN Notes Reviewed History Limitations: Reports: No Limitations - History of Present Illness INITIAL COMMENTS - FREE TEXT/NARRATIVE: 70-year-old gentleman presents emergency department day complaint of left arm pain, he injured himself when he was carrying at a trailer tire slipped fell on outstretched hand severe pain at his upper arm. Concern for forearm fracture. He is currently in a splint radial pulses +2 full range of motion of of digits Left Upper Arm Pain Score (Numeric/FACES): 10 - Related Data Allergies Allergy/AdvReac Type Severity Reaction Status Date / Time No Known Allergies Allergy Verified 06/19/20 08:38 Home Meds: Home Meds Omeprazole [Prilosec] 40 mg PO DAILY 06/19/15 [History] Simvastatin [Zocor] 20 mg PO BEDTIME 06/19/15 [History] Aspirin [Ecotrin EC] 81 mg PO DAILY 06/20/15 [History] Calcium Carbonate/Vitamin D3 [Calcium 600-Vit D3 800 Tablet] 1 tab PO BID 03/23/19 [History] Psyllium [Metamucil] 0.52 gm PO DAILY 03/23/19 [History] levalbuterol HCL [Xopenex] 1 ampule NEB Q8HRRT PRN 03/23/19 [History] polyethylene glycoL 3350 [Polyethylene Glycol 3350] 1 gm PO DAILY PRN 03/23/19 [History] Docusate Sodium [Stool Softener] 250 mg PO BID 06/08/19 [History] Acetaminophen [Tylenol Extra Strength] 1,000 mg PO BEDTIME 06/13/20 [History] Losartan Potassium 100 mg PO DAILY 06/13/20 [History] Pseudoeph/Dm/Guaifen/Acetamin [ Day Time Cold-Flu Rel Sftgl] 2 tab PO BID PRN 06/13/20 [History] Saw Ava Fruit [Saw Ava] 900 mg PO BID 06/13/20 [History] Tamsulosin HCl [Flomax] 0.4 mg PO DAILY 06/13/20 [History] Triamcinolone Acetonide [Triamcinolone Acetonide 0.1% Crm] 1 applic TOP BID 06/13/20 [History] Fish Oil/DHA/EPA [Fish Oil 1,200 MG] 1,200 mg PO DAILY 06/19/20 [History] Past Medical History HEENT History: Reports: Cataract, Impaired Vision, Other (See Below) Other HEENT History: always has a little ringing in ears for past 2 yrs Cardiovascular History: Reports: High Cholesterol, Hypertension Respiratory History: Reports: Pneumonia, Recurrent, Pulmonary Fibrosis Gastrointestinal History: Reports: Chronic Constipation, Colon Polyp, GERD Genitourinary History: Reports: Prostate Disorder Other Genitourinary History: Prostate CA Musculoskeletal History: Reports: Arthritis Endocrine/Metabolic History: Reports: Obesity/BMI 30+ Oncologic (Cancer) History: Reports: Prostate - Infectious Disease History Infectious Disease History: Reports: Chicken Pox, Measles, Mumps, Other (See Below) Other Infectious Disease History: covid Feb 2020 - Past Surgical History HEENT Surgical History: Reports: Cataract Surgery, Oral Surgery Cardiovascular Surgical History: Reports: None Respiratory Surgical History: Reports: Lung Biopsies GI Surgical History: Reports: Colonoscopy, Hernia, Abdominal Male Surgical History: Reports: Prostate Biopsy, Other (See Below) Other Male Surgeries/Procedures: removal of prostate Musculoskeletal Surgical History: Reports: Arthroscopic Knee, Carpal Tunnel Oncologic Surgical History: Reports: None Social & Family History - Family History Family Medical History: No Pertinent Family History - Tobacco Use Tobacco Use Status *Q: Never Tobacco User - Caffeine Use Caffeine Use: Reports: Coffee - Recreational Drug Use Recreational Drug Use: No - Living Situation & Occupation Living situation: Reports: (lives with Y[place], [place] at [facility]. One son,only child lives nearby. 3 grand children.) Review of Systems - Review of Systems Review Of Systems: See Below Respiratory: Reports: No Symptoms Cardiovascular: Reports: No Symptoms Musculoskeletal: Reports: Arm Pain ED EXAM, GENERAL - Physical Exam Exam: See Below Free Text/Narrative:: Examination of the arm reveals a radial pulses +2 full range of motion of digits it is splinted over the humerus he will not tolerate much of an exam, continues to have ongoing pain. Exam Limited By: No Limitations General Appearance: Alert, Mild Distress Respiratory/Chest: No Respiratory Distress, Lungs Clear, Normal Breath Sounds, No Accessory Muscle Use, Chest Non-Tender Cardiovascular: Regular Rate, Rhythm, No Murmur Course - Vital Signs Last Recorded V/S: Last Vital Signs Temp 96.4 F L 03/30/21 13:20 Pulse 60 03/30/21 13:20 Resp 18 03/30/21 13:20 BP 175/73 H 03/30/21 13:20 Pulse Ox 95 03/30/21 13:20 - Orders/Labs/Meds Orders: Active Orders 24 hr Category Date Time Status Shoulder 1V Lt [CR] Stat Exams 03/30/21 14:33 Ordered DME for Discharge [COMM] Stat Oth 03/30/21 15:10 Ordered Meds: Medications Discontinued Medications Generic Name Dose Route Start Last Admin Trade Name Girish PRN Reason Stop Dose Admin Hydromorphone HCl 1 mg 03/30/21 13:40 03/30/21 13:44 Hydromorphone 1 Mg/Ml Syringe IVPUSH 03/30/21 13:41 1 mg ONETIME ONE Administration Hydromorphone HCl 1 mg 03/30/21 14:29 03/30/21 15:21 Hydromorphone 1 Mg/Ml Syringe IVPUSH 03/30/21 14:30 1 mg ONETIME ONE Administration Prochlorperazine Edisylate 5 mg 03/30/21 13:42 03/30/21 13:48 Prochlorperazine 10 Mg/2 Ml Sdv IVPUSH 03/30/21 13:43 5 mg ONETIME ONE Administration Propofol Confirm 03/30/21 15:06 Propofol 200 Mg/20 Ml Sdv Administered 03/30/21 15:07 Dose 200 mg .ROUTE .STK-MED ONE - Re-Assessments/Exams Free Text/Narrative Re-Assessment/Exam: 03/30/21 15:28 Orthopedics consulted for reduction of shoulder please see orthopedic note for details Departure - Departure Time of Disposition: 15:27 Disposition: Home, Self-Care 01 Condition: Fair Clinical Impression: Dislocation of shoulder, left, closed Qualifiers: Encounter type: initial encounter Qualified Code(s): S43.005A - Unspecified dislocation of left shoulder joint, initial encounter - Discharge Information Instructions: Shoulder Dislocation Referrals: PCP,Unknown [Primary Care Provider] - Forms: ED Department Discharge Additional Instructions: Continue with regular medications, please follow-up with orthopedics in a couple weeks, call or return to the emergency department worsening of symptoms Sepsis Event Note (ED) - Evaluation Sepsis Screening Result: No Definite Risk - Focused Exam Vital Signs: Vital Signs Temp Pulse Resp BP Pulse Ox 03/30/21 13:20 96.4 F L 60 18 175/73 H 95 - My Orders Last 24 Hours: My Active Orders 03/30/21 14:33 Shoulder 1V Lt [CR] Stat 03/30/21 15:10 DME for Discharge [COMM] Stat - Assessment/Plan Last 24 Hours: My Active Orders 03/30/21 14:33 Shoulder 1V Lt [CR] Stat 03/30/21 15:10 DME for Discharge [COMM] Stat Plan: Assessment Acuity = acute Site and laterality = left shoulder dislocation closed Etiology = secondary to a fall Manifestations = none Location of injury = Home Lab values = x-ray of the humerus was negative for fracture did show acute anterior dislocation, post reduction film adequate Plan He is placed in a sling hydrocodone 5/325 1 tab p.o. 3 times daily as needed total #6 provided for additional pain if needed, he will follow up with orthopedics in clinic in 2 weeks This note was dictated using [employer] voice recognition software please call with any questions on syntax or grammar.
--- NOTE | 2021-03-30 14:28 | CR ---
Humerus Lt CLINICAL HISTORY: Pain, fall FINDINGS: There is an anterior dislocation of the humerus. No fracture is identified. Humeral head is not well seen. IMPRESSION: Anterior dislocation of the humerus. Dedicated shoulder study recommended postreduction to evaluate humeral head
[2021-03-30] MEDS ORDERED: Propofol 200 MG/20 ML SDV ONE (15:06)
--- NOTE | 2021-03-30 15:27 | PCM.PRNOTE ---
- Free Text/Narrative Note: Yonathan 70 y/o right-handed gentleman, presents to ER via EMS services for suspected left humerus fracture after fall at home. X-rays obtained in the ER showed a dislocated left shoulder, humerus without fracture. Orthopedics was consulted for reduction. Upon arrival to ER, patient had obvious deformity to the left shoulder. UGO wrap and immobilization board applied over mid-humerus by EMS service. Left radial pulse, 2+. Able to move left digits 1-5. Sensation to LUE was intact. X-ray findings and proposed treatment of closed reduction under conscious sedation was reviewed with patient. The risks, benefits, recovery timeline, and alternative treatments to closed reduction were reviewed with patient. Patient was agreeable to above procedure and all of his questions were answered prior to the start of procedure. Rehan Aquino CRNA placed patient under conscious sedation. UGO wrap and immobilization board removed from left arm. Using the [place] technique with assistance from Officer, manual downwards traction was applied to humerus, followed by abduction and external rotation at the shoulder. Reduction of the humerus was palpable. Post-reduction x-ray confirmed successful reduction. No obvious bony deformity after reduction. Left radial pulse, 2+ after reduction with capillary refill <2 seconds. Sensation to LUE intact. Able to move left digits 1-5 and full ROM at elbow without pain. Patient tolerated procedure well with no complications. Patient remained hemodynamically stable during and after procedure. Reviewed post-reduction guidelines with patient. Will discharge home in sling, encouraged to wear sling for the next week, may wean out as tolerated thereafter. Will then follow up with orthopedics in 2 weeks to evaluate rotator cuff. No lifting with left arm in the interim.
--- NOTE | 2021-03-30 16:56 | CR ---
Shoulder 1V Lt CLINICAL HISTORY: Postreduction FINDINGS: There is no acute fracture or dislocation in the left shoulder. Impression: Limited single view shows reduction of previous dislocation. No fracture seen
== END 2021-03-30 15:45 | disposition home or self-care (01) ==
LOC: JP.ED 13:15
DX: S43.005A Unspecified dislocation of left shoulder joint, initial encounter (principal); E78.00 Pure hypercholesterolemia, unspecified; I10 Essential (primary) hypertension; K21.9 Gastro-esophageal reflux disease without esophagitis; E66.9 Obesity, unspecified; Z68.29 Body mass index [BMI] 29.0-29.9, adult; Z79.899 Other long term (current) drug therapy; Z79.82 Long term (current) use of aspirin; W01.0XXA Fall on same level from slipping, tripping and stumbling without subsequent striking against object, initial encounter
CPT/HCPCS: 23650; 73020; 73060; 96374; 96375; 96376; 99284; J0780; J1170; J2704

== ENCOUNTER 2021-05-27 08:08 | Day surgery (SDC) | payer MEDICARE, BC ==
[~2021-05-27 08:08] MED LIST changes: +Bupivacaine 0.5% 30 ML SDV ONE; -Dextrose 5%-Lactated Ringers 1,000 ML IV SCH; -Glycopyrrolate 0.2 MG/ML 2 ML SDV IVPUSH ONE
[2021-05-27] MEDS ORDERED: fentaNYL 100 MCG/2 ML SDV ONE ×2 (08:29→11:32)
[2021-05-27] MEDS ORDERED: Propofol 200 MG/20 ML SDV ONE ×2 (08:29→08:31)
[2021-05-27] MEDS ORDERED: Midazolam 1 MG/ML 2 ML SDV ONE (08:30)
[2021-05-27] MEDS ORDERED: Lactated Ringers 1,000 ML IV SCH (08:30)
[2021-05-27] MEDS ORDERED: ceFAZolin 2 GM in Premix Bag 1 BAG IV ONE (09:00)
[2021-05-27] MEDS ORDERED: Nozin Nasal Sanitizer NASBOTH ONE (09:15)
[2021-05-27] MEDS ORDERED: Ketorolac 30 MG/ML SDV ONE (10:16)
[2021-05-27] MEDS ORDERED: Bupivacaine 0.5% 30 ML SDV ONE (10:40)
[2021-05-27] MEDS ORDERED: Acetaminophen/oxyCODONE 325-5 MG Tab PO PRN (13:21)
[2021-05-27 13:55] VITALS: BP 152/55; PULSE 64
== END 2021-05-27 14:17 | disposition home or self-care (01) ==
LOC: JP.SDS 08:08
PROVIDERS: ATTEND Specialist
DX: S46.012A Strain of muscle(s) and tendon(s) of the rotator cuff of left shoulder, initial encounter (principal); S46.112A Strain of muscle, fascia and tendon of long head of biceps, left arm, initial encounter; E78.2 Mixed hyperlipidemia; E66.9 Obesity, unspecified; K21.9 Gastro-esophageal reflux disease without esophagitis; J84.9 Interstitial pulmonary disease, unspecified; I10 Essential (primary) hypertension; F51.01 Primary insomnia; Z86.16 Personal history of COVID-19; Z98.890 Other specified postprocedural states; Z79.899 Other long term (current) drug therapy; Z87.891 Personal history of nicotine dependence; Z68.31 Body mass index [BMI] 31.0-31.9, adult
CPT/HCPCS: A9270-GY; C1713; J0690; J1885; J2250; J2704; J3010; J3490; J7120

== ENCOUNTER 2024-05-24 07:24 | Day surgery (SDC) | payer MEDICARE, BC ==
[2024-05-24] MEDS: Lactated Ringers 1,000 ML IV SCH (08:00)
[2024-05-24] MEDS ORDERED: Propofol 200 MG/20 ML SDV ONE (08:17)
[2024-05-24] MEDS ORDERED: fentaNYL 100 MCG/2 ML SDV ONE (08:17)
[2024-05-24 10:10] VITALS: BP 149/88; PULSE 80
== END 2024-05-24 10:50 | disposition home or self-care (01) ==
LOC: JP.SDS 07:24
PROVIDERS: ATTEND Surgery
DX: Z12.11 Encounter for screening for malignant neoplasm of colon (principal); D12.0 Benign neoplasm of cecum; K57.30 Diverticulosis of large intestine without perforation or abscess without bleeding; I10 Essential (primary) hypertension; K21.9 Gastro-esophageal reflux disease without esophagitis
CPT/HCPCS: 00811-QZ; 88305; J2704; J3010; J7120